=== PATIENT | male | born 1945 | race Asian ===

== ENCOUNTER 2016-09-01 12:00 | Emergency (ER) | payer MEDICARE, MEDICAID ==
[~2016-09-01] VITALS: Ht 172.7 cm; Wt 72.7 kg
[~2016-09-01 12:00] MED LIST: AMIO200T44 PO; CARV12 PO; DUTA.5 PO; FURO40 PO; METF500T4 PO; TAMS0.4C32 PO; TIOT185 IH; WARF3TAB29 PO
[2016-09-01] MEDS ORDERED: LISI-661 PO (12:15)
[2016-09-01 13:09] LABS: GLUCOSE, URINE (UA) NEGATIVE (NEGATIVE); KETONES,URINE NEGATIVE (NEGATIVE); LEUKOCYTE ESTERASE ,URINE NEGATIVE (NEGATIVE); OCCULT BLOOD,URINE NEGATIVE (NEGATIVE); PROTEIN,URINE NEGATIVE (NEGATIVE)
[2016-09-01 13:13] LABS: ADD UA MICROSCOPIC NO; APPEARANCE,URINE SLIGHTLY CLOUDY (CLEAR)
[2016-09-01 16:10] VITALS: BP 144/82
== END 2016-09-01 16:30 | disposition home or self-care (01) ==
LOC: EDUNIT# 12:00 → EMS 12:08
DX: R33.9 Retention of urine, unspecified (principal); R30.0 Dysuria; I25.10 Atherosclerotic heart disease of native coronary artery without angina pectoris; I11.0 Hypertensive heart disease with heart failure; I50.9 Heart failure, unspecified; I48.91 Unspecified atrial fibrillation; J44.9 Chronic obstructive pulmonary disease, unspecified; J45.909 Unspecified asthma, uncomplicated; E11.9 Type 2 diabetes mellitus without complications; Z95.1 Presence of aortocoronary bypass graft; Z95.0 Presence of cardiac pacemaker
CPT/HCPCS: 51701; 82962; 99283; 99284

== ENCOUNTER 2016-09-06 04:57 | Emergency (ER) | payer MEDICAID, MEDICARE ==
[~2016-09-06] VITALS: Ht 172.7 cm; Wt 81.8 kg
[~2016-09-06 04:57] MED LIST changes: +LISI-661 PO
[2016-09-06 05:07] LABS: GLUCOSE,POINT OF CARE 122 MG/DL (70-110)
[2016-09-06 06:08] LABS: GLUCOSE, URINE (UA) NEGATIVE (NEGATIVE); KETONES,URINE NEGATIVE (NEGATIVE); LEUKOCYTE ESTERASE ,URINE NEGATIVE (NEGATIVE); PROTEIN,URINE NEGATIVE (NEGATIVE)
[2016-09-06 06:13] LABS: ADD UA MICROSCOPIC YES; APPEARANCE,URINE CLEAR (CLEAR); OCCULT BLOOD,URINE TRACE (NEGATIVE); RBC,URINE 0-2 /HPF (0-2); WBC,URINE 0-2 /HPF (0-5)
[2016-09-06 06:52] LABS: BASOPHILS % (AUTO) 0.5 % (0.0-2.0); EOSINOPHILS % (AUTO) 8.3 % (1.0-6.0); HEMATOCRIT 42.4 % (41-53); HEMOGLOBIN 13.7 g/dL (13.5-17.5); LYMPHOCYTES # (AUTO) 1.1 K/uL (1.0-4.8); LYMPHOCYTES % (AUTO) 22.9 % (22.0-44.0); MEAN CORPUSCULAR HEMOGLOBIN 26.9 pg (26.0-34.0); MEAN CORPUSCULAR HGB CONC 32.3 G/dL (31.0-37.0); MEAN CORPUSCULAR VOLUME 83 fL (80-100); MONOCYTES # (AUTO) 0.4 K/uL (0.1-1.0); MONOCYTES % (AUTO) 8.4 % (2.0-9.0); NEUTROPHILS % (AUTO) 59.9 % (40.0-70.0); PLATELET COUNT (AUTO) 185 K/uL (150-450); RED BLOOD CELL COUNT(AUTO) 5.11 MIL/uL (4.50-5.90); RED CELL DISTRIBUTION WIDTH 17.8 % (11.5-14.5)
[2016-09-06 07:03] LABS: CALCIUM, TOTAL 9.2 mg/dL (8.8-10.5); CREATININE 1.41 mg/dL (0.60-1.30); POTASSIUM 3.5 mmol/L (3.5-5.1)
[2016-09-06 08:20] VITALS: BP 152/88
== END 2016-09-06 08:26 | disposition home or self-care (01) ==
LOC: EMS 04:59
DX: R33.9 Retention of urine, unspecified (principal); I48.91 Unspecified atrial fibrillation; I11.0 Hypertensive heart disease with heart failure; I50.9 Heart failure, unspecified; E11.9 Type 2 diabetes mellitus without complications; J44.9 Chronic obstructive pulmonary disease, unspecified; I25.10 Atherosclerotic heart disease of native coronary artery without angina pectoris; Z79.01 Long term (current) use of anticoagulants; Z95.0 Presence of cardiac pacemaker; Z79.899 Other long term (current) drug therapy
CPT/HCPCS: 51702; 82962; 99284